=== PATIENT | male | born 1995 | race Hispanic/Latino ===

== ENCOUNTER 2018-02-11 18:54 | Observation (INO) | payer OTHER ==
--- NOTE | 2018-02-11 20:57 | ED PDOC ---
Syncope/Near Syncope/Dizziness Time Seen by Provider: 02/11/18 19:51 Chief Complaint (Nursing): Dizziness/Lightheaded Chief Complaint (Provider): Dizziness/Lightheaded History Per: Patient History/Exam Limitations: no limitations Onset/Duration Of Symptoms: Hrs, Waxing/Waning Current Symptoms Are (Timing): Still Present (Mild) Additional Complaint(s): Patient is a 22 y/o male with no significant PMHx who presents to the ED for evaluation of a near syncopal episode earlier today. Patient [place] when he felt lightheaded, sweats, and his vision became dark. Patient reports to have taken a seat and felt better, but decided to come to the ER for evaluation. Since eating at 14:00, patient also complains of waxing and waning stomach pain throughout the afternoon that is mild right now. Patient admits to nausea, however, denies vomiting, diarrhea, constipation, fever, or any urinary symptoms. Of note, patient has had two prior episodes of fainting due to dehydration but the stomach pain is new. Patient has not taken any medications for relief from symptoms. PCP: None Provided Past Medical History Reviewed: Historical Data, Nursing Documentation, Vital Signs Vital Signs: Last Vital Signs Temp Pulse 76 02/11/18 18:56 Resp 18 02/11/18 18:56 BP 154/72 H 02/11/18 18:56 Pulse Ox 100 02/11/18 18:56 - Medical History PMH: No Chronic Diseases - Surgical History Surgical History: No Surg Hx - Family History Family History: States: No Known Family Hx - Social History Current smoker - smoking cessation education provided: No Alcohol: Social Drugs: Denies - Allergies Allergies/Adverse Reactions: Allergies Allergy/AdvReac Type Severity Reaction Status Date / Time No Known Allergies Allergy Verified 02/11/18 18:59 Review of Systems ROS Statement: Except As Marked, All Systems Reviewed And Found Negative (as per HPI) Constitutional: Positive for: Sweats. Negative for: Fever Eyes: Positive for: Vision Change (went dark) Gastrointestinal: Positive for: Nausea, Abdominal Pain (stomach - epigastric and supraumbilical area). Negative for: Vomiting, Diarrhea, Constipation Genitourinary Male: Negative for: Dysuria, Hematuria Neurological: Positive for: Other (Lightheaded) Physical Exam - Reviewed Nursing Documentation Reviewed: Yes Vital Signs Reviewed: Yes - Physical Exam Appears: Positive for: Well, No Acute Distress Skin: Positive for: Warm, Dry Eye Exam: Positive for: EOMI, PERRL ENT: Positive for: Other (dry mucous membranes) Neck: Positive for: Painless ROM, Supple Cardiovascular/Chest: Positive for: Regular Rate, Rhythm. Negative for: Murmur Respiratory: Positive for: Normal Breath Sounds. Negative for: Wheezing Gastrointestinal/Abdominal: Positive for: Soft, Tenderness (minimal in epigastric region). Negative for: Mass, Guarding, Rebound Back: Positive for: Normal Inspection. Negative for: Muscle Spasm Extremity: Positive for: Normal ROM. Negative for: Deformity Lymphatic: Negative for: Adenopathy Neurologic/Psych: Positive for: Alert, Oriented (x3). Negative for: Motor/Sensory Deficits - Laboratory Results Result Diagrams: 02/11/18 20:45 02/11/18 20:45 - ECG ECG Rhythm: Positive for: Normal QRS, Sinus Rhythm Interpretation Of Abn EKG: PADMINI O2 Sat by Pulse Oximetry: 100 (RA) Pulse Ox Interpretation: Normal Medical Decision Making Medical Decision Making: Time: 2015 Impression: Abd Pain and Syncope Plan: EKG CMP Lipase Magnesium Phosphorus CBC [Dextrose 5%-0.9% NS 500 ml] 500 ml IV 150 mls/hr IV Insertion (Saline Lock) During orthostatic check, pt had near syncopal episode. Pt felt lightheaded, HR initially elevated and then ld. Additional fluids ordered. EXAM: CT Abdomen and Pelvis with IV contrast CLINICAL HISTORY: Abd pain and syncope TECHNIQUE: Axial computed tomography images of the abdomen and pelvis with intravenous contrast. 496.59 mGy-cm CONTRAST: With; [id number] 95ML COMPARISON: None provided. FINDINGS: LUNG BASES: The lung bases appear clear. No pleural effusions are seen. LIVER: Unremarkable. GALLBLADDER AND BILE DUCTS: The gallbladder appears within normal limits. No radioopaque gallstones are seen. No biliary ductal dilatation is evident. PANCREAS: Unremarkable. SPLEEN: Unremarkable. ADRENAL GLANDS: Unremarkable. KIDNEYS, URETERS, AND BLADDER: The kidneys appear within normal limits. There is no hydronephrosis or hydroureter. No urinary calculi are seen. STOMACH AND BOWEL: Thick walled fluid filled duodenum and loops of jejunum as well as ileum compatible with severe panenteritis. Infectious and inflammatory etiologies are considered. Consider consultation with GI service and follow up with upper endoscopy and colonoscopy. APPENDIX: No evidence of acute appendicitis on CT examination. PERITONEUM: No free fluid. No free air. LYMPH NODES: No lymphadenopathy is evident. REPRODUCTIVE: Unremarkable as visualized. VASCULATURE: No evidence of abdominal aortic aneurysm. BONES: No aggressive appearing osseous lesion. No acute osseous pathology evident. IMPRESSION: Severe panenteritis. Infectious and inflammatory etiologies are considered. Consider consultation with GI service. Electronically signed on Feb 11, 2018 11:57:12 PM EST by: Socrates Turner M.D., MBA Certified By [facility] & [facility] Fellowship Trained MRI and CT Specialist Scribe Attestation: Documented by Franco Box, acting as a scribe for Yris Mehta MD. Provider Scribe Attestation: All medical record entries made by the Scribe were at my direction and personally dictated by me. I have reviewed the chart and agree that the record accurately reflects my personal performance of the history, physical exam, medical decision making, and the department course for this patient. I have also personally directed, reviewed, and agree with the discharge instructions and disposition. Disposition - Clinical Impression Clinical Impression: Enteritis Discussed With : Emilee Omalley Doctor Will See Patient In The: Hospital Counseled Patient/Family Regarding: Studies Performed, Diagnosis - Disposition Disposition Time: 00:00 Condition: FAIR Forms: [employer] (Vietnamese)
[2018-02-11 21:10] LABS: BASO # 0.1 K/uL (0.0-0.2); BASO % 0.4 % (0.0-2.0); EOS % 0.2 % (0.0-4.0); HEMOGLOBIN 16.8 g/dL (12.0-18.0); LYMPH # 0.3 K/uL (1.0-4.3); LYMPH % 2.6 % (20.0-40.0); MEAN CORPUSCULAR HEMOGLOBIN 30.8 pg (27.0-31.0); MEAN CORPUSCULAR HGB CONC 34.2 g/dL (33.0-37.0); MEAN PLATELET VOLUME 8.6 fl (7.2-11.7); MONO # 0.7 K/uL (0.0-0.8); NEUT # 12.1 K/uL (1.8-7.0); NEUT % 91.8 % (50.0-75.0); PLATELET COUNT 194 K/uL (130-400); RBC 5.45 Mil/uL (4.40-5.90); RED CELL DISTRIBUTION WIDTH 12.4 % (11.5-14.5); WHITE BLOOD COUNT 13.2 K/uL (4.8-10.8)
[2018-02-11 21:36] LABS: ALB/GLOB RATIO 1.2 (1.0-2.1); ALBUMIN 4.7 g/dL (3.5-5.0); ALT/SGPT 44 U/L (21-72); AST/SGOT 35 U/L (17-59); BLOOD UREA NITROGEN 22 mg/dl (9-20); CALCIUM 9.7 mg/dL (8.4-10.2); GFR NON-AFRICAN AMERICAN > 60; LIPASE 34 U/L (23-300)
[2018-02-11] MEDS ORDERED: Sodium Chloride 0.9% 1,000 ML IV STA (21:57)
[2018-02-11 22:08] LABS: LYMPHOCYTE 2 % (20-50); MONOCYTE 4 % (0-10); NEUTROPHIL 94 % (42-75); TOTAL CELLS COUNTED 100
[2018-02-11 22:09] LABS: ANISOCYTOSIS SLIGHT; OVALOCYTES SLIGHT; PLATELET ESTIMATE NORMAL (NORMAL); POIKILOCYTOSIS SLIGHT
[2018-02-11] MEDS ORDERED: Sodium Chloride 0.9% 50 ML IV ONE (22:44)
[2018-02-11] MEDS ORDERED: Iohexol 300 100 ML IJ ONE (22:44)
[2018-02-12] MEDS ORDERED: metroNIDAZOLE 500mg/100ml NS 100 ML IV STA (00:13)
[2018-02-12] MEDS ORDERED: Ciprofloxacin 400mg/200ml D5W 400 MG/200 ML BAG IV STA (00:13)
[2018-02-12] MEDS ORDERED: Ciprofloxacin 400mg/200ml D5W 400 MG/200 ML BAG IVPB ONE (00:57)
[2018-02-12] MEDS ORDERED: metroNIDAZOLE 500mg/100ml NS 100 ML IVPB ONE (02:13)
[2018-02-12] MEDS: Dextrose 5%/0.9% NS 1,000 ML IV SCH ×2 (02:21→11:21)
[2018-02-12] MEDS ORDERED: Morphine 4 MG/ML VIAL IVP PRN (02:24)
[2018-02-12 05:41] LABS: BASO % 0.2 % (0.0-2.0); EOS % 0.2 % (0.0-4.0); HEMOGLOBIN 15.1 g/dL (12.0-18.0); LYMPH # 0.6 K/uL (1.0-4.3); LYMPH % 6.4 % (20.0-40.0); MEAN CELL VOLUME 89.6 fl (80.0-94.0); MEAN CORPUSCULAR HEMOGLOBIN 30.7 pg (27.0-31.0); MEAN CORPUSCULAR HGB CONC 34.3 g/dL (33.0-37.0); MEAN PLATELET VOLUME 8.6 fl (7.2-11.7); MONO # 0.6 K/uL (0.0-0.8); MONO % 6.4 % (0.0-10.0); NEUT # 7.6 K/uL (1.8-7.0); NEUT % 86.8 % (50.0-75.0); NRBC % 0.1 % (0.0-0.0); RBC 4.9 Mil/uL (4.40-5.90); RED CELL DISTRIBUTION WIDTH 12.3 % (11.5-14.5); WHITE BLOOD COUNT 8.8 K/uL (4.8-10.8)
[2018-02-12 06:29] LABS: ALB/GLOB RATIO 1.2 (1.0-2.1); ALBUMIN 3.9 g/dL (3.5-5.0); ALT/SGPT 36 U/L (21-72); AST/SGOT 24 U/L (17-59); BLOOD UREA NITROGEN 17 mg/dl (9-20); CALCIUM 8.5 mg/dL (8.4-10.2); GFR NON-AFRICAN AMERICAN > 60
[2018-02-12] MEDS: metroNIDAZOLE 500mg/100ml NS 100 ML IVPB SCH ×2 (11:22→16:45)
[2018-02-12] MEDS: Ciprofloxacin 400mg/200ml D5W 400 MG/200 ML BAG IVPB SCH ×2 (11:23→21:49)
--- NOTE | 2018-02-12 13:51 | CT ---
Date of service: 02/11/2018 PROCEDURE: CT Abdomen and Pelvis with contrast HISTORY: abd pain and syncope COMPARISON: None. TECHNIQUE: Following the intravenous administration of iodinated contrast material, a CT examination of the abdomen and pelvis performed from the domes of the diaphragms to the symphysis pubis with reformatted datasets provided in axial, sagittal and coronal planes. Oral contrast was not administered as per referring physician request. Coronal and sagittal reformats were generated. Contrast dose: Omnipaque 300, 95 cc Radiation dose: Total exam DLP = 496.59 mGy-cm. This CT exam was performed using one or more of the following dose reduction techniques: Automated exposure control, adjustment of the mA and/or kV according to patient size, and/or use of iterative reconstruction technique. FINDINGS: LOWER THORAX: Unremarkable. LIVER: Unremarkable. No gross lesion or ductal dilatation. GALLBLADDER AND BILE DUCTS: Unremarkable. PANCREAS: Unremarkable. No gross lesion or ductal dilatation. SPLEEN: Unremarkable. ADRENALS: Unremarkable. No mass. KIDNEYS AND URETERS: Unremarkable. No hydronephrosis. No solid mass. VASCULATURE: Unremarkable. No aortic aneurysm. No aortic atherosclerotic calcification or mural plaque present. BOWEL: No bowel obstruction appreciable. Fluid is seen distending the stomach and filling numerous loops of small bowel and the ascending colon with retained fecal material scattered throughout the remainder of the colon on a [id number] basis. No prominent mural thickening throughout any bowel loop is identified or mesenteric reaction to define enteritis or colitis. Clinically correlate nevertheless. APPENDIX: Not identified. No CT pattern suggest appendicitis at this time. PERITONEUM: Unremarkable. No free fluid. No free air. LYMPH NODES: Unremarkable. No enlarged lymph nodes. BLADDER: Unremarkable. REPRODUCTIVE: Unremarkable. BONES: No acute fracture. OTHER FINDINGS: None. IMPRESSION: Nonspecific pattern of fluid filling small bowel loops as well as proximal large bowel. No bowel obstruction, mesenteric edema, prominent mural thickening or free intra peritoneal gas collection. No definitive acute findings. Clinically correlate further. Discordant from preliminary report from [facility] 02/11/2018 11:57 p.m. with severe pain enteritis not identified by myself.
--- NOTE | 2018-02-12 17:10 | CON ---
DATE: 02/12/2018 HISTORY OF PRESENT ILLNESS: This is a 22-year-old man with history who comes in for abdominal pain, discomfort single episode. He has some gas discomfort, which has since resolved. He noted really no nausea, vomiting. No reflux, no heartburn. Currently lying in bed, comfortable, in no apparent distress. PAST MEDICAL HISTORY: As above. PAST SURGICAL HISTORY: As above. MEDICATIONS: Have been reviewed. REVIEW OF SYSTEMS: All other systems are reviewed. Negative apart from HPI. PHYSICAL EXAMINATION: VITAL SIGNS: Here in the hospital, grossly unremarkable. GENERAL: This is a pleasant young man, lying in bed comfortably, in no apparent distress. HEENT: Head is normocephalic and atraumatic. Eyes, pupils are equally reactive to light bilaterally. No pallor. No icterus. NECK: Supple. Normal range of motion. No lymphadenopathy appreciated. LUNGS: Coarse breath sounds bilaterally. HEART: S1 and S2. Regular rate and rhythm. No murmurs appreciated. ABDOMEN: Soft. Nontender. Bowel sounds present. No rebound. No guarding. RECTAL: Deferred. EXTREMITIES: Pulses felt bilaterally. SKIN: Warm, dry and intact. NEUROLOGIC: A and O x3. LABORATORY DATA: All labs and radiology have been reviewed; 13.2 is the white count that is normal, hemoglobin and CBC is normal. ALT is normal. CAT is done and pending. ASSESSMENT AND PLAN: This is a 22-year-old male with questionable enteritis. From a gastrointestinal point, advance diet as tolerated. Pending CT results we will make recommendations thereafter. He will benefit at some point from endoscopy as an outpatient. Thank you for the consult. Mason Ndiaye MD/ PhD
--- NOTE | 2018-02-12 20:21 | CARD ---
APPROVED REPORT Date of service: 02/11/2018 EKG Measurement Heart [id number] <Conclusion> Normal sinus rhythm ST elevation, probably due to early repolarization Borderline ECG
[2018-02-13] MEDS: metroNIDAZOLE 500mg/100ml NS 100 ML IVPB SCH ×2 (00:08→09:40)
[2018-02-13 05:13] VITALS: RESP 18
[2018-02-13] MEDS: Ciprofloxacin 400mg/200ml D5W 400 MG/200 ML BAG IVPB SCH (09:39)
[2018-02-13 12:04] VITALS: BP 139/86; PULSE 69; TEMP 98.2; O2SAT 96
--- NOTE | 2018-02-14 01:45 | CP.PCM.HP ---
History of Present Illness - History of Present Illness History of Present Illness: CC: Feeling of Passing out History of Present Illness: A 22 y/o male with no PMHx who presents to the ED for evaluation of a feeling of Passing out today. [place] when he felt lightheaded, sweats, and his vision became dark, and have taken a seat and felt better, but decided to come to the ER for evaluation. Also complains of waxing and waning stomach pain throughout the afternoon on the day of presentation but denies today. +nausea. Denies vomiting, diarrhea, or constipation. Spiked fever 101.4 last night. No urinary symptoms. Had two prior episodes of fainting due to dehydration. In the ER, CT abdomen showed Severe Enteritis. Also +Leukocytosis with left Shift. Present on Admission - Present on Admission Any Indicators Present on Admission: No Review of Systems - Review of Systems All systems: reviewed and no additional remarkable complaints except Review of Systems: as per HPI Past Patient History - Past Medical History & Family History Past Medical History?: No Past Family History: Reviewed and not pertinent - Past Social History Smoking Status: Never Smoked Alcohol: None Drugs: Denies - CARDIAC Hx Cardiac Disorders: No - PULMONARY Hx Respiratory Disorders: No - NEUROLOGICAL Hx Neurological Disorder: No - HEENT Hx HEENT Problems: No - RENAL Hx Chronic Kidney Disease: No - ENDOCRINE/METABOLIC Hx Endocrine Disorders: No - HEMATOLOGICAL/ONCOLOGICAL Hx Blood Disorders: No - INTEGUMENTARY Hx Dermatological Problems: No - MUSCULOSKELETAL/RHEUMATOLOGICAL Hx Falls: Yes - GENITOURINARY/GYNECOLOGICAL Hx Genitourinary Disorders: No - PSYCHIATRIC Hx Substance Use: No - ANESTHESIA Hx Anesthesia: No Hx Anesthesia Reactions: No Hx Malignant Hyperthermia: No Has any member of the family had a problem w/ anesthesia?: No Meds Home Medications: Home Medication List Medication Instructions Recorded Confirmed Type Ciprofloxacin [Cipro] 500 mg PO Q12 #14 tab 02/12/18 Rx Metronidazole [Flagyl] 500 mg PO Q8 #21 tablet 02/12/18 Rx Allergies/Adverse Reactions: Allergies Allergy/AdvReac Type Severity Reaction Status Date / Time No Known Allergies Allergy Verified 02/11/18 18:59 Physical Exam - Constitutional Appears: Well, No Acute Distress - Head Exam Head Exam: ATRAUMATIC, NORMAL INSPECTION, NORMOCEPHALIC - Eye Exam Eye Exam: EOMI, Normal appearance, PERRL Pupil Exam: NORMAL ACCOMODATION, PERRL - ENT Exam ENT Exam: Mucous Membranes Moist, Normal Exam - Neck Exam Neck exam: Positive for: Normal Inspection - Respiratory Exam Respiratory Exam: Clear to Auscultation Bilateral, NORMAL BREATHING PATTERN - Cardiovascular Exam Cardiovascular Exam: REGULAR RHYTHM, +S1, +S2 - GI/Abdominal Exam GI & Abdominal Exam: Normal Bowel Sounds, Soft. absent: Rebound, Rigid, Tenderness - Extremities Exam Extremities exam: Positive for: normal capillary refill, normal inspection - Back Exam Back exam: NORMAL INSPECTION - Neurological Exam Neurological exam: Alert, CN II-XII Intact, Normal Gait, Oriented x3, Reflexes Normal - Psychiatric Exam Psychiatric exam: Normal Affect, Normal Mood - Skin Skin Exam: Dry, Intact, Normal Color, Warm Results - Vital Signs Recent Vital Signs: Last Vital Signs Temp 98.2 F 02/13/18 12:04 Pulse 69 02/13/18 12:04 Resp 18 02/13/18 12:04 BP 139/86 02/13/18 12:04 Pulse Ox 96 02/13/18 12:04 - Labs Result Diagrams: 02/12/18 05:25 02/12/18 05:25 - EKG Data EKG Interpreted by: Myself EKG shows normal: Sinus rhythm Rate: Normal - Impressions Impression: ST elevation due repolarization - Imaging and Cardiology CT abdominal/Pelvis: Status: Report reviewed by me Additional comment: Date of service: 02/11/2018 PROCEDURE: CT Abdomen and Pelvis with contrast HISTORY: abd pain and syncope COMPARISON: None. TECHNIQUE: Following the intravenous administration of iodinated contrast material, a CT examination of the abdomen and pelvis performed from the domes of the diaphragms to the symphysis pubis with reformatted datasets provided in axial, sagittal and coronal planes. Oral contrast was not administered as per referring physician request. Coronal and sagittal reformats were generated. Contrast dose: Omnipaque 300, 95 cc Radiation dose: Total exam DLP = 496.59 mGy-cm. This CT exam was performed using one or more of the following dose reduction techniques: Automated exposure control, adjustment of the mA and/or kV according to patient size, and/or use of iterative reconstruction technique. FINDINGS: LOWER THORAX: Unremarkable. LIVER: Unremarkable. No gross lesion or ductal dilatation. GALLBLADDER AND BILE DUCTS: Unremarkable. PANCREAS: Unremarkable. No gross lesion or ductal dilatation. SPLEEN: Unremarkable. ADRENALS: Unremarkable. No mass. KIDNEYS AND URETERS: Unremarkable. No hydronephrosis. No solid mass. VASCULATURE: Unremarkable. No aortic aneurysm. No aortic atherosclerotic calcification or mural plaque present. BOWEL: No bowel obstruction appreciable. Fluid is seen distending the stomach and filling numerous loops of small bowel and the ascending colon with retained fecal material scattered throughout the remainder of the colon on a [id number] basis. No prominent mural thickening throughout any bowel loop is identified or mesenteric reaction to define enteritis or colitis. Clinically correlate nevertheless. APPENDIX: Not identified. No CT pattern suggest appendicitis at this time. PERITONEUM: Unremarkable. No free fluid. No free air. LYMPH NODES: Unremarkable. No enlarged lymph nodes. BLADDER: Unremarkable. REPRODUCTIVE: Unremarkable. BONES: No acute fracture. OTHER FINDINGS: None. IMPRESSION: Nonspecific pattern of fluid filling small bowel loops as well as proximal large bowel. No bowel obstruction, mesenteric edema, prominent mural thickening or free intra peritoneal gas collection. No definitive acute findings. Clinically correlate further. Assessment & Plan (1) Near syncope Status: Acute Priority: High (2) Sepsis Status: Acute Priority: High (3) Enteritis, infectious, presumed Status: Acute Priority: High - Assessment and Plan (Free Text) Plan: Observe in Telemetry NPO IVF D5NS@125 cc/hr IV Flagyl and Ciprofloxacin Pain Medication PRN Tylenol PRN T 101 or More GI Consulted Stool Work Up
--- NOTE | 2018-02-14 01:46 | CP.PCM.DIS ---
Provider - Provider Date of Admission: 02/12/18 00:09 Attending physician: Emilee Omalley MD Consults: 02/12/18 00:19 Gastroenterology Consult Stat Comment: Consulting Provider: Mason Ndiaye Consulting Physician: Mason Ndiaye Reason for Consult: severe panenteritis Time Spent in preparation of Discharge (in minutes): 20 Diagnosis - Discharge Diagnosis (1) Enteritis Status: Acute (2) Near syncope Status: Acute Priority: High (3) Sepsis Status: Acute Priority: High Hospital Course - Lab Results Lab Results: Micro Results 02/12/18 00:50 Blood-Venous Blood Culture - Preliminary NO GROWTH AFTER 48 HOURS 02/12/18 00:50 Blood-Venous Blood Culture - Preliminary NO GROWTH AFTER 48 HOURS Most Recent Lab Values WBC 8.8 K/uL (4.8-10.8) 02/12/18 05:25 RBC 4.90 Mil/uL (4.40-5.90) 02/12/18 05:25 Hgb 15.1 g/dL (12.0-18.0) 02/12/18 05:25 Hct 44.0 % (35.0-51.0) 02/12/18 05:25 MCV 89.6 fl (80.0-94.0) 02/12/18 05:25 MCH 30.7 pg (27.0-31.0) 02/12/18 05:25 MCHC 34.3 g/dL (33.0-37.0) 02/12/18 05:25 RDW 12.3 % (11.5-14.5) 02/12/18 05:25 Plt Count 180 K/uL (130-400) 02/12/18 05:25 MPV 8.6 fl (7.2-11.7) 02/12/18 05:25 Neut % (Auto) 86.8 % (50.0-75.0) H 02/12/18 05:25 Lymph % (Auto) 6.4 % (20.0-40.0) L 02/12/18 05:25 Barren % (Auto) 6.4 % (0.0-10.0) 02/12/18 05:25 Eos % (Auto) 0.2 % (0.0-4.0) 02/12/18 05:25 Baso % (Auto) 0.2 % (0.0-2.0) 02/12/18 05:25 Neut # (Auto) 7.6 K/uL (1.8-7.0) H 02/12/18 05:25 Lymph # (Auto) 0.6 K/uL (1.0-4.3) L 02/12/18 05:25 Barren # (Auto) 0.6 K/uL (0.0-0.8) 02/12/18 05:25 Eos # (Auto) 0.0 K/uL (0.0-0.7) 02/12/18 05:25 Baso # (Auto) 0.0 K/uL (0.0-0.2) 02/12/18 05:25 Neutrophils % (Manual) 94 % (42-75) H 02/11/18 20:45 Lymphocytes % (Manual) 2 % (20-50) L 02/11/18 20:45 Monocytes % (Manual) 4 % (0-10) 02/11/18 20:45 Platelet Estimate Normal (NORMAL) 02/11/18 20:45 Poikilocytosis (manual Slight 02/11/18 20:45 Anisocytosis (manual) Slight 02/11/18 20:45 Ovalocytes Slight 02/11/18 20:45 Sodium 136 mmol/l (132-148) 02/12/18 05:25 Potassium 3.6 MMOL/L (3.6-5.0) 02/12/18 05:25 Chloride 102 mmol/L (98-107) 02/12/18 05:25 Carbon Dioxide 26 mmol/L (22-30) 02/12/18 05:25 Anion Gap 12 (10-20) 02/12/18 05:25 BUN 17 mg/dl (9-20) 02/12/18 05:25 Creatinine 1.2 mg/dl (0.8-1.5) 02/12/18 05:25 Est GFR ( Amer) > 60 02/12/18 05:25 Est GFR (Non-Af Amer) > 60 02/12/18 05:25 POC Glucose (mg/dL) 115 mg/dL (65-110) H 02/11/18 20:55 Random Glucose 124 mg/dL (75-110) H 02/12/18 05:25 Lactic Acid 1.5 MMOL/L (0.7-2.1) 02/12/18 00:50 Calcium 8.5 mg/dL (8.4-10.2) 02/12/18 05:25 Phosphorus 2.4 mg/dl (2.5-4.5) L 02/11/18 20:45 Magnesium 1.9 MG/DL (1.6-2.3) 02/11/18 20:45 Total Bilirubin 0.8 mg/dl (0.2-1.3) 02/12/18 05:25 AST 24 U/L (17-59) 02/12/18 05:25 ALT 36 U/L (21-72) 02/12/18 05:25 Alkaline Phosphatase 55 U/L (38-126) 02/12/18 05:25 Total Protein 7.1 G/DL (6.3-8.2) 02/12/18 05:25 Albumin 3.9 g/dL (3.5-5.0) 02/12/18 05:25 Globulin 3.2 gm/dL (2.2-3.9) 02/12/18 05:25 Albumin/Globulin Ratio 1.2 (1.0-2.1) 02/12/18 05:25 Lipase 34 U/L (23-300) 02/11/18 20:45 Influenza Typ A,B (EIA) Negative for flu a/b (NEGATIVE) 02/12/18 00:50 - Hospital Course Hospital Course: Tolerating Diet, and wants to go home Discharge Plan - Discharge Medications Prescriptions: Ciprofloxacin [Cipro] 500 mg PO Q12 #14 tab Metronidazole [Flagyl] 500 mg PO Q8 #21 tablet - Follow Up Plan Condition: FAIR Disposition: HOME/ ROUTINE Instructions: Acute Abdomen (Belly Pain), Adult (DC), Syncope (Fainting) (DC) Additional Instructions: follow up with in 1 week Referrals: Mason Ndiaye MD, PhD [Staff Provider] - Emilee Omalley MD [Staff Provider] -
== END 2018-02-13 13:39 | disposition home or self-care (01) ==
LOC: H.ER 18:54 → H.ERHOLD 02-12 00:09 → H.TEL 02-12 02:51
PROVIDERS: ADMIT Internal Medicine; ATTEND Internal Medicine
DX: K52.9 Noninfective gastroenteritis and colitis, unspecified (principal); R55 Syncope and collapse; R14.1 Gas pain
CPT/HCPCS: 36415; 74177; 80053; 82948; 83605; 83690; 83735; 84100; 85025; 87040; 87804; 93005; 96360; 96361; 96365; 96366; 96367; 96375; 99285; G0378; J0744; J7030; J7042; Q9967